=== PATIENT | male | born 1955 | race Caucasian/White ===

== ENCOUNTER 2016-08-23 06:59 | Emergency (ER) | payer OTHER ==
--- NOTE | ~2016-08-23 | MR112 ---
[facility] A Service of [facility] & [facility] RADIOLOGY TEXT RESULTS PATIENT: JYOTI GOSS LOCATION: [facility] : 55 UNIT #: [id number] AGE: [address]: Josiah Geiger MD SEX: M ORDER DR: [id number] [facility] [address] [place], [place] [address] [id number] E MR#: [id number] Acc #: [id number] NAME: JYOTI GOSS : 1955 SEX: M STUDY DATE/TIME: 08/23/2016 10:02 UNIT: [facility] ROOM: STUDY DESCRIPTION: MR Lumbar WWo Contrast Attending Physician: Josiah Geiger M.D. Ordering Physician: Josiah Geiger M.D. Primary Care Physician: Primary Care Physician No MRI CENTER REPORT This report is preliminary unless electronic signature is present. EXAM MRI of the lumbar spine with and without contrast dated 08/23/2016 COMPARISON MRI thoracic spine with and without contrast dated 08/23/2016 HISTORY Bilateral hip pain for 1 week, mid back pain. Patient has had prior epidural abscesses in the neck. Evaluate for possible epidural abscess in the mid and lower back now. Patient has difficulty giving history. Patient has radicular pain in bilateral lower extremities with weakness. FINDINGS Multisequence multiplanar imaging of the lumbar spine was obtained with and without contrast. GFR measured greater than 60. 14 mL of MultiHance was administered intravenously. Vertebral body heights are relatively preserved. Mild anterolisthesis of L5 with respect to S1. Endplate irregularities and significant bone edema is noted within L5 and S1 vertebral bodies. There is enhancement of the L5-S1 disc space with enhancing soft tissue in the pre and paravertebral regions, anterior epidural space of L5-S1. The abnormal enhancement within the soft tissues extends superiorly to the level of upper L5 close to L4-5 disc and inferiorly to the level of S1. No drainable abscess collection is discerned. Suspicious faint enhancement of the nerve roots of the cauda equina from the level of L2 down to the level of L5-S1 suspicious for arachnoiditis, particularly given the setting of infection at L5-S1. Degenerative disc disease is seen at multiple levels. There is increased T2 signal noted within the L3-4 disc space with suspicious mild enhancement along the posterior aspect of the disc. No obvious paravertebral enhancing soft tissues or abscess is seen. There is focal enlargement of the inferior abdominal aorta just above its bifurcation at the level of L3-4. It measures 2.6 cm in AP dimension and 3.2 cm in STS. [facility] A Service of [facility] RADIOLOGY TEXT RESULTS PATIENT: [facility] GOSS [id number] 55 UNIT #: [id number] AGE: [address]: Josiah Geiger MD SEX: M ORDER DR: transverse dimension. T12-L1: Concentric disc bulge with small central annular fissure. No canal stenosis or neural foraminal narrowing. Mild bilateral facet changes. L1-2: Disc osteophyte complex with superimposed bilateral foraminal to extraforaminal broad-based protrusions and mild inferior bilateral neural foraminal encroachment particularly in the left. Mild bilateral facet changes are noted with borderline size to mild canal stenosis. L2-3: Disc osteophyte complex which is asymmetrically prominent in bilateral foraminal to extraforaminal regions, worse on the left. They are likely related to superimposed broad-based disc protrusions. Mild inferior right and hfpb-qd-mjsyxekt left neural foraminal narrowing are noted with mild bilateral facet changes and borderline size to mild canal stenosis. L3-4: Disc osteophyte complex which is asymmetrically prominent in bilateral foraminal to extraforaminal regions suggestive of superimposed broad-based protrusions. Moderate bilateral neural foraminal narrowing are noted with anvj-gs-tgrrdgbl canal stenosis. There are mild bilateral facet changes. L4-5: Disc osteophyte complex which is asymmetrically prominent in bilateral foraminal to extraforaminal regions suggestive of superimposed broad-based protrusions. Clbz-wv-oiztdrwd bilateral neural foraminal narrowing is seen with mild canal stenosis. There is suspicious small left central to subarticular spur/protrusion with mild to moderate left lateral recess stenosis and mild canal stenosis. L5-S1: Abnormal disc is noted with enhancement as described earlier. Surrounding enhancing pre and paravertebral soft tissue and anterior epidural soft tissue is noted without obvious abscess formation. There are mild to moderate bilateral facet hypertrophic changes with ebcr-ul-apbjstzd mass effect on the thecal sac. Mild right and uykb-wd-hxxdvjed left lateral recess stenosis are also noted. Preliminary read was given by Dr. Keyur Glez on 08/23/2016 after the exam was obtained. IMPRESSION 1. Evidence of discitis and osteomyelitis at L5-S1 with mild anterolisthesis of L5 with respect to S1. 2. There is enhancing inflammatory soft tissue in the pre and paravertebral regions and along the anterior epidural space without any drainable abscess. 3. Suspicious disc height is along the posterior aspect of L3-4 given increased T2 signal and enhancement in this region. There is STS. [facility] A Service of [facility] & [facility] RADIOLOGY TEXT RESULTS PATIENT: JYOTI GOSS LOCATION: [facility] : 55 UNIT #: [id number] AGE: [address]: Josiah Geiger MD SEX: M ORDER DR: increased T2 signal throughout the L3-4 disc involving the anterior and mid aspect also but that portion does not enhance and it could be degenerative change. Early discitis along the posterior aspect cannot be excluded. There is no associated inflammatory paravertebral or anterior epidural soft tissue with enhancement seen at this time. 4. Faintly enhancing nerve roots of the cauda equina cannot be completely excluded. Given the infection at the lower level, subtle arachnoiditis cannot be completely excluded. 5. Degenerative changes are at multiple levels of the lumbar spine as described above. Dictated by... Dereje Stahl M.D. THIS IS AN ELECTRONICALLY VERIFIED REPORT Dereje Stahl M.D. at 08/31/2016 10:25 AM ALEXANDER/kajal TD: 08/24/2016 10:59 JOB #: [id number] MRI CENTER REPORT Page 1 of 1 COPY
--- NOTE | ~2016-08-23 | MR175 ---
[facility] A Service of [facility] & [facility] RADIOLOGY TEXT RESULTS PATIENT: JYOTI GOSS LOCATION: [facility] : 55 UNIT #: [id number] AGE: [address]: Josiah Geiger MD SEX: M ORDER DR: [id number] [facility] [address] [place], [place] [address] [id number] E MR#: [id number] Acc #: [id number] NAME: JYOTI GOSS : 1955 SEX: M STUDY DATE/TIME: 08/23/2016 10:02 UNIT: [facility] ROOM: STUDY DESCRIPTION: MR Thoracic WWo Contrast Attending Physician: Josiah Geiger M.D. Ordering Physician: Josiah Geiger M.D. Primary Care Physician: Primary Care Physician No MRI CENTER REPORT This report is preliminary unless electronic signature is present. EXAM MRI of the thoracic spine with and without contrast dated 08/23/2016 COMPARISON MRI lumbar spine with and without contrast dated 08/23/2016 COMPARISON There are no prior spine studies available for comparison. FINDINGS Vertebral body heights and alignment are preserved. Increased T2 signal with small less than 1.0 cm lesions are noted at T6, T10 and T12 along the midline. These have associated iso to increased T1 signal and is suggestive of fat containing nonaggressive benign lesions. No associated pathological fracture or extraosseous soft tissue components are seen. The thoracic cord demonstrates normal course, caliber and signal. There is increased T2 signal noted within the T1 vertebral body. It could be partly related to postoperative change extending from the cervical spine up to the level of T1. No thoracic vertebral body fracture, subluxation, retropulsion of fragments into the canal, significant canal stenosis or cord compression is seen. Degenerative disc disease is seen at multiple levels of the thoracic spine. No large significant disc herniations. Thoracic cord demonstrates normal course, caliber and signal. Minimal facet changes are at multiple levels. Postcontrast sequences do not demonstrate any significant abnormality. There appear to be mild alveolar disease along the dependent posterior aspect of bilateral lower lobes of the lungs, right worse than left. Refer to MRI of the lumbar spine from the same day which demonstrates significant findings. IMPRESSION 1. No significant disc herniation, canal stenosis, neural foraminal narrowing or cord compression. 2. Less than 1.0 cm increased T2-signal lesions are noted within T6, T10 STS. [facility] A Service of [facility] RADIOLOGY TEXT RESULTS PATIENT: JYOTI GOSS LOCATION: [facility] : 55 UNIT #: [id number] AGE: [address]: Josiah Geiger MD SEX: M ORDER DR: and T12 vertebral bodies most suggestive of nonaggressive lesions like atypical hemangioma. 3. There is increased T2 signal noted within T1 vertebral body which is incompletely characterized on the current study. There are postoperative changes noted at the level of C7-T1 extending from the cervical level downwards. The signal change could be related to surgery however superimposed other abnormality cannot be completely excluded based on the current study. There are no old studies to ensure stability. Refer to previous MRI cervical spine and if it is stable, no further evaluation is needed but if the T-2 signal appears to be worse, MRI of the cervical spine can be obtained for further characterization. 4. Refer to MRI of the lumbar spine study which has significant findings in the level of L5-S1. 5. A preliminary report was given on 08/23/2016, after the study was obtained, by Dr. Keyur Glez M.D. Dictated by... Dereje Stahl M.D. THIS IS AN ELECTRONICALLY VERIFIED REPORT Dereje Stahl M.D. at 08/26/2016 5:26 PM CPR/kajal TD: 08/24/2016 10:01 JOB #: [id number] MRI CENTER REPORT Page 1 of 1 COPY
--- NOTE | ~2016-08-23 | CR206 ---
[facility] A Service of [facility] RADIOLOGY TEXT RESULTS PATIENT: JYOTI GOSS LOCATION: [facility] : 55 UNIT #: [id number] AGE: [address]: Josiah Geiger MD SEX: M ORDER DR: [id number] [facility] [address] [place], [place] [address] [id number] E MR#: [id number] Acc #: [id number] NAME: JYOTI GOSS : 1955 SEX: M STUDY DATE/TIME: 08/23/2016 8:29 UNIT: [facility] ROOM: STUDY DESCRIPTION: CR Pelvis 1 or 2 Views Attending Physician: Josiah Geiger M.D. Ordering Physician: Josiah Geiger M.D. Primary Care Physician: Primary Care Physician No MEDICAL IMAGING REPORT This report is preliminary unless electronic signature is present EXAM AP view of the pelvis COMPARISON None INDICTIONS 61-year-old male with bilateral hip pain for 1 week. No known injury. FINDINGS There are bilateral pelvic calcifications most in keeping with phleboliths. Evaluation of the lower lumbar spine, sacrum and iliac wings is limited by overlapping bowel gas and stool. Hips appear anatomically aligned. No evidence of significant degenerative change. No acute fracture or focal osseous destruction is seen on this exam. IMPRESSION 1. Evaluation of the sacrum and iliac wings as well as the lower lumbar spine is limited due to overlying bowel gas and stool. There are likely degenerative changes of the lower lumbar spine. 2. Normal radiographic evaluation of the hips. 3. Bilateral pelvic calcifications favoring phleboliths in the absence of acute pelvic pain. These appear generally too large to reflect distal obstructing ureteral calculi. Clinical correlation recommended. Dictated by... Hugo Medrano M.D. THIS IS AN ELECTRONICALLY VERIFIED REPORT Hugo Medrano M.D. at 08/30/2016 3:[address] [facility]/cmm [facility] A Service of [facility] RADIOLOGY TEXT RESULTS PATIENT: JYOTI GOSS LOCATION: [facility] : 55 UNIT #: [id number] AGE: [address]: Josiah Geiger MD SEX: M ORDER DR: TD: 08/23/2016 13:42 JOB #: [id number] MEDICAL IMAGING REPORT Page 1 of 1 COPY
[2016-08-23 08:37] LABS: BASOPHIL# 0.1 X10e3 (0-0.3); BASOPHIL% 0.9 % (0-2.5); DIFF IND NO; EOSINOPHIL# 0.3 X10e3 (0-0.7); EOSINOPHIL% 2.5 % (0.0-7.0); HEMOGLOBIN 11.6 gm/dL (13.0-16.0); LYMPHOCYTE% 15.3 % (17.0-45.0); MEAN CELL VOLUME 86.2 FL (83-96); MEAN CORPUSCULAR HEMOGLOBIN 27.8 PG (28-34); MEAN CORPUSCULAR HGB CONC 32.3 g/dL (30-36); MONOCYTE% 7.3 % (3.0-12.0); NEUTROPHIL# 9.8 X10e3 (1.5-7.1); PLATELET COUNT 332 X10e3 (140-420); RED BLOOD COUNT 4.18 X10e (3.90-5.60); RED CELL DISTRIBUTION WIDTH 14.4 % (11.0-15.5); WHITE BLOOD COUNT 13.3 X10e3 (4.0-10.5)
[2016-08-23 09:15] LABS: ALBUMIN SERUM 2.5 g/dL (3.5-5.0); BILIRUBIN, DIRECT 0.2 mg/dL (0.0-0.2); BILIRUBIN,INDIRECT 0.7 mg/dL (0.0-0.9); BILIRUBIN,TOTAL 0.9 mg/dL (0.2-2.0); BUN/CREATININE RATIO 15.71; CALCIUM SERUM 9.1 mg/dL (8.4-10.2); CREATININE SERUM 0.7 mg/dL (0.6-1.4); GLOM FILT RATE Estimated 101.9 mL/min (>60); POTASSIUM 3.5 mmol/L (3.5-5.1); PROTEIN TOTAL SERUM 8.1 g/dL (6.0-8.3)
[2016-08-23 14:50] LABS: URINE SOURCE CLEAN CATCH
[2016-08-23 14:56] LABS: URINE APPEARANCE CLOUDY; URINE BILIRUBIN NEG (NEG); URINE BLOOD 3+ (NEG); URINE COLOR YELLOW; URINE GLUCOSE NEG (NEG); URINE KETONE NEG (NEG); URINE LEUKOCYTE ESTERASE NEG (NEG); URINE NITRATE NEG (NEG); URINE PROTEIN NEG (NEG); URINE SPECIFIC GRAVITY 1.014 (1.003-1.035)
[2016-08-23 14:58] LABS: URBCS1 AUWI 50-100 /[HPF] (0-2); URINE BACTERIA AUWI NEG (NEGATIVE); URINE SQUAMOUS EPITHELIAL CELL NONE SEEN /[HPF]
[2016-08-23 15:01] LABS: CULTURE INDICATED? NO
== END 2016-08-23 18:23 ==
LOC: CED 06:59
PROVIDERS: Emergency Medicine
DX: M46.47 Discitis, unspecified, lumbosacral region (principal); M46.27 Osteomyelitis of vertebra, lumbosacral region; J44.9 Chronic obstructive pulmonary disease, unspecified; I25.2 Old myocardial infarction; F17.200 Nicotine dependence, unspecified, uncomplicated; Z98.890 Other specified postprocedural states
CPT/HCPCS: 36415; 72157; 72158; 72170; 80048; 80076; 81003; 85025; 96365; 96366; 96368; 96375; 96376; 99285; A9577; J1170; J2250; J2543; J3370